=== PATIENT | male | born 1955 | race Caucasian/White ===

== ENCOUNTER 2017-08-28 00:43 | Observation (INO) | payer OTHER, SELFPAY ==
[2017-08-28] VITALS (8 sets, daily range): BP systolic 103–111; BP diastolic 60–70; PULSE 63–75; RESP 16–18; TEMP 36.4–37.2; O2SAT 96–99; BMI 25.2; BMI 25.3
--- NOTE | 2017-08-28 01:26 | EKG12_ITS ---
Test Reason : CP Blood Pressure : / mmHG Vent. Rate : 070 BPM Atrial Rate : 070 BPM P-R Int : 190 ms QRS Dur : 114 ms QT Int : 416 ms P-R-T Axes : 051 -43 062 degrees QTc Int : 449 ms Normal sinus rhythm Left axis deviation Abnormal ECG No previous ECGs available Confirmed by CHRISTY PEREZ, RAO ([id number]), editorial specialist GILMAR WILLIAMSON ([id number] on 08/30/2017 9:46:12 AM Referred By: CARISSA Confirmed By:RAO HARRISON MD
[2017-08-28] MEDS: 0.9% Normal Saline 1,000 ML 100 ML IV (03:27)
[2017-08-28] MEDS: Acetaminophen 500 MG Tablet 1000 MG PO (03:27)
[2017-08-28] MEDS: 0.9% NaCl Peripheral Flush Adult/Peds IV (03:27)
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
--- NOTE | 2017-08-28 08:44 | STEWCON_ITS ---
Reason For Study: CHEST PAIN Stress Results Protocol: Dobutamine Maximum Predicted HR: 158 bpm Target HR: 134 bpm% Maximum Predicted HR: 86 % DurationHeart Rate Stage (mm:ss) (bpm) BPDos e BASELINE 63 141/57 STAGE 1 3:00 65 123/6410.00 STAGE 2 3:00 10 4 144/7420.00 STAGE 3 3:46 13 6 159/7630.00 RECOVERY 98 130/71 Stress Duration: 9:46 mm:ss Maximum Stress HR: 136 bpm Baseline Echocardiogram Findings The estimated ejection fraction is 65 %. Stress Echo Wall motion Data Resting WMIntermediate WMStress WM Resting Wall Motion Wall Motion Stress No regional wall motion No regional wall motion abnormalities noted. abnormalities noted. EKG Data Normal intervals are noted. The patient was titrated from 10 mcg to a maximun of 30 mcg of dobutamine during the stress. The maximum heart rate attained was 141 beats per minute. This was 89% of maximum predicted heart rate. During dobutamine infusion, there were no ST or T wave changes noted to suggest ischemia. No clinical angina was noted. Interpretation Summary The estimated ejection fraction is 65 %. The patient was titrated from 10 mcg to a maximun of 30 mcg of dobutamine during the stress. Normal adequate dobutamine echocardiogram. Negative for ischemia by EKG and echocardiographic criteria. No anginal symptoms noted. Rare PVC noted. Appropriate blood pressure response to dobutamine. Final LVEF is 75%. No complications. Ordering Physician: Adithya Montenegro Referring Physician: Adithya Montenegro MD Performed By: Dominic Bustos RCS
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
[2017-08-28] MEDS: Pantoprazole Sodium 20 MG Tablet PO (11:26)
--- NOTE | 2017-08-28 12:00 | PCM.DC ---
- Discharge Diagnoses Current Active Problems: Current Active and Chronic Problems Chest pain (Acute) Elevated troponin (Acute) You will use the following diet at home:: No restrictions Discharge Activity: Return to Normal Activity Call your doctor if you observe: Shortness of breath, Dizziness, Fainting spells, Chest pain Additional Instructions: You can increase your home Prilosec to twice a day to see if this helps with acid reflux symptoms. If no improvement, recommend following with GI for further evaluation. Recommend discontinuing meloxicam if you are able to tolerate pain using Tylenol only. You can increase your Tylenol regimen to 1000 mg 3 times daily. Recommend fasting lipid panel to be completed as outpatient by primary care physician. Allergies/Adverse Reactions: Allergies No Known Allergies Allergy (Verified 08/28/17 00:59) Medications to take at Discharge Acetaminophen [Tylenol] 650 mg PO Q8H PRN 08/28/17 Omeprazole [Prilosec] 10 mg PO DAILY 08/28/17 Please Follow Up With: Primary Care Physician When: 1 Week Please Follow Up With: Rui Benavides MD When: If reflux symptoms persist. Proposed Discharge Date: 08/28/17
--- NOTE | 2017-08-28 12:04 | DCINST_ITS ---
- Discharge Diagnoses Current Active Problems: Current Active and Chronic Problems Chest pain (Acute) Elevated troponin (Acute) You will use the following diet at home:: No restrictions Discharge Activity: Return to Normal Activity Call your doctor if you observe: Shortness of breath, Dizziness, Fainting spells , Chest pain Additional Instructions: You can increase your home Prilosec to twice a day to see if this helps with acid reflux symptoms. If no improvement, recommend following with GI for further evaluation. Recommend discontinuing meloxicam if you are able to tolerate pain using Tylenol only. You can increase your Tylenol regimen to 1000 mg 3 times daily. Recommend fasting lipid panel to be completed as outpatient by primary care physician. Allergies/Adverse Reactions: Allergies No Known Allergies Allergy (Verified 08/28/17 00:59) Medications to take at Discharge Acetaminophen [Tylenol] 650 mg PO Q8H PRN 08/28/17 Omeprazole [Prilosec] 10 mg PO DAILY 08/28/17 Please Follow Up With: Primary Care Physician When: 1 Week Please Follow Up With: Rui Benavides MD When: If reflux symptoms persist. Proposed Discharge Date: 08/28/17
--- NOTE | 2017-08-28 12:05 | DS.PCM_ITS ---
<Yadira Escalante - Last Filed: 08/28/17 12:46> Discharge Date and Diagnosis Date of Admission: 08/28/17 Date of Discharge: 08/28/17 - Primary Discharge Diagnosis Active and Suspected Problems 1. Non-cardiac chest pain, elevated troponin 2. 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 Patient states he had recent GI illness with vomiting and diarrhea. He was not taking his Prilosec during that time. He does have a history of acid reflux. His other past medical history includes degenerative joint disease of the cervical and lumbar spine, degenerative arthritis of the left hip, spinal stenosis of the cervical spine and lumbar spine. Patient takes meloxicam due to chronic pain. Patient was seen by cardiology. Patient underwent stress echocardiogram which showed an EF of 65%. Negative for ischemia. Recommend fasting lipid panel will be completed as outpatient by primary care physician. Chest pain found to be noncardiac related. Suspect secondary to acid reflux. Discussed with patient that he can increase his home Prilosec regimen to twice daily. If no improvement in symptoms, recommend follow-up with GI for further evaluation. Recommend discontinuing meloxicam if patient is able to tolerate chronic pain using Tylenol only. Discussed with patient that he can increase his Tylenol regimen to 1000 mg 3 times daily. Patient denies further chest pain during admission. He can follow-up with cardiology as outpatient. He prefers to follow-up with [facility] providers. Follow-up with primary care physician in 1 week. Patient seen exam prior to discharge. Alert, oriented, no acute distress. Lungs clear. Heart rate regular rate and rhythm. Abdomen soft, nontender. Neuro grossly intact. No edema. Skin intact. Normal affect. Vital signs stable. This patient was seen by DORCAS Yeung under the supervision of Dr. Urbina. Discharge Diet: No Restrictions Discharge Activity: Return to Normal Activity Call your doctor if you observe: Shortness of breath, Dizziness, Fainting spells , Chest pain Home Medications: Medications to take at Discharge Acetaminophen [Tylenol] 650 mg PO Q8H PRN 08/28/17 Omeprazole [Prilosec] 10 mg PO DAILY 08/28/17 Please Follow Up With: Primary Care Physician When: 1 Week Please Follow Up With: Rui Benavides MD When: If reflux symptoms persist. Disposition: Home Minutes spent on discharge:: 35 Patient Condition:: Stable Medical Necessity - Tobacco Use Smoking Status: Never smoker Tobacco Use: Non-smoker Meaningful Use Info Meaningful Use Diagnoses (Choose all that apply): None applicable <Celso Urbina - Last Filed: 08/29/17 16:32> Hospital Course and Treatment Adithya Montenegro Operations: None Procedures: - Summary of Care Provided: Patient seen and examined independently. Data reviewed. I agree with the above note by the nurse practitioner. The patient is a 61 year old M presents with chest pain and indeterminate troponins. Stress test was negative. Patient otherwise is stable. Patient has no further events. Patient was seen in consultation by cardiology. No cardiac intervention was necessary. Patient states that his symptoms are similar to his reflux. Patient was discharged home. [] Discharge Diet: No Restrictions Discharge Activity: Return to Normal Activity Call your doctor if you observe: Shortness of breath, Dizziness, Fainting spells , Chest pain Disposition: Home Patient Condition:: Stable Meaningful Use Info Meaningful Use Diagnoses (Choose all that apply): None applicable Code Visit OBSV E&M: 91182 Observation care discharge
== END 2017-08-28 12:03 | disposition home or self-care (01) ==
PROVIDERS: Admitting Provider Internal Medicine
DX: R07.89 Other chest pain (principal); K21.9 Gastro-esophageal reflux disease without esophagitis; M47.892 Other spondylosis, cervical region; M47.896 Other spondylosis, lumbar region; M16.12 Unilateral primary osteoarthritis, left hip; Z79.899 Other long term (current) drug therapy; G89.29 Other chronic pain
CPT/HCPCS: 36415; 84484; 93005; 93017; 93350; 96360; 96361; 99218; J7030; A4216; G0378